=== PATIENT | male | born 1930 | race Two or more races ===

== ENCOUNTER 2019-01-02 08:59 | Emergency (ER) | payer OTHER ==
[~2019-01-02] VITALS: Ht 157.5 cm; Wt 59.0 kg
[2019-01-02] MEDS ORDERED: ACETAMINOPHEN WITH CODEINE 300/30MG TABLET PO STA (10:20)
[2019-01-02] MEDS ORDERED: ACYCLOVIR 400 MG TABLET PO ONE (10:30)
[2019-01-02] MEDS ORDERED: PREDNISONE 20MG TABLET PO ONE (10:30)
[2019-01-02 10:42] LABS: CHLORIDE 107 mEq/L (98-107)
[2019-01-02 10:43] LABS: BASOPHILS % 0.9 % (0.0-2.0); EOSINOPHILS % 3.8 % (0.0-5.0); HEMATOCRIT. 45.9 % (42.0-52.0); HEMOGLOBIN. 15.4 g/dL (14.0-18.0); LYMPHOCYTES % 18.3 % (20.0-50.0); MEAN CORPUSCULAR HEMOGLOBIN 30.6 pg (28.0-32.0); MEAN CORPUSCULAR VOLUME 91.4 fL (80.0-94.0); MEAN PLATELET VOLUME 7.5 fl (7.4-10.4); MONOCYTES % 8.1 % (2.0-8.0); NEUTROPHILS % 68.9 % (40.0-76.0); PLATELET 235 x1000/uL (130-400); RED BLOOD CELL COUNT 5.02 mill/uL (4.7-6.1); RED CELL DISTRIBUTION WIDTH 14.6 % (11.6-14.6)
[2019-01-02 11:20] VITALS: BP 158/85
== END 2019-01-02 11:40 | disposition home or self-care (01) ==
LOC: ER 09:35
DX: B01.9 Varicella without complication (principal); I10 Essential (primary) hypertension
CPT/HCPCS: 36415; 80053; 85025; 93005; 99284; J7512